=== PATIENT | female | born 1975 | race Caucasian/White ===

== ENCOUNTER 2017-02-27 10:10 | Outpatient (CLI) ==
[2016-09-13 18:56] VITALS: BMI 44.2
[2017-02-27 12:54] LABS: BASOPHILS # (AUTO) 0.1 K/uL (0-0.2); BASOPHILS % (AUTO) 1.1 % (0.0-3.0); EOSINOPHILS # (AUTO) 0.1 K/ul (0.0-0.7); EOSINOPHILS % (AUTO) 2.5 % (0.0-7.0); HEMATOCRIT 38.5 % (37.0-47.0); HEMOGLOBIN 12.2 g/dl (12.0-16.0); IMMATURE GRANULOCYTE % (AUTO) 0.4 % (0.0-5.0); LYMPHOCYTES # (AUTO) 2.1 K/uL (0.60-3.4); LYMPHOCYTES % (AUTO) 37.1 (10.0-50.0); MEAN CORPUSCULAR HEMOGLOBIN 25.5 pg (27.0-31.0); MEAN CORPUSCULAR HGB CONC 31.7 (31.8-35.4); MEAN CORPUSCULAR VOLUME 80.5 fl (81.0-99.0); MONOCYTES # (AUTO) 0.2 K/uL (0.4-2.0); MONOCYTES % (AUTO) 3.7 (0-10); NEUTROPHILS # (AUTO) 3.1 K/ul (2.0-6.9); NEUTROPHILS % (AUTO) 55.2; PLATELET COUNT 307 10^3/uL (140-440); RED BLOOD COUNT 4.78 10^6/ul (4.20-5.40); WHITE BLOOD COUNT 5.64 K/ul (4.6-10.2)
[2017-02-27 13:40] LABS: ALBUMIN 3.3 g/dL (3.4-5.0); ALBUMIN/GLOBULIN RATIO 0.85; ANION GAP 12.5; BILIRUBIN,TOTAL 0.37 mg/dL (0.00-1.20); BUN/CREATININE RATIO 16.88; CALCIUM 9.2 mg/dL (8.2-10.2); CHOL/HDL RATIO 3.7 (4.5-5.5); CREATININE 0.77 mg/dL (0.60-1.30); POTASSIUM 4.5 mmol/L (3.5-5.10); TOTAL PROTEIN 7.2 g/dL (6.4-8.2)
== END 2017-02-27 10:11 | disposition home or self-care (01) ==
LOC: LAB 10:10
PROVIDERS: ATTEND Nurse Practitioner Family
DX: D50.9 Iron deficiency anemia, unspecified (principal); F41.9 Anxiety disorder, unspecified; F32.9 Major depressive disorder, single episode, unspecified; E03.9 Hypothyroidism, unspecified; E55.9 Vitamin D deficiency, unspecified
CPT/HCPCS: 36415; 80053; 80061; 82306; 84443; 85025

== ENCOUNTER 2017-03-06 12:29 | Outpatient (CLI) ==
[2016-09-13 18:56] VITALS: BMI 44.2
[2017-03-06 14:01] LABS: FERRITIN 25.65 ng/mL (4.63-204.00)
== END 2017-03-06 12:30 | disposition home or self-care (01) ==
LOC: LAB 12:29
PROVIDERS: ATTEND Nurse Practitioner Family
DX: Z86.2 Personal history of diseases of the blood and blood-forming organs and certain disorders involving the immune mechanism (principal)
CPT/HCPCS: 36415; 82607; 82728; 83540; 83550; 84466

== ENCOUNTER → 2017-06-03 | Outpatient (POV) ==
[2016-09-13 18:56] VITALS: BMI 44.2
== END ==
LOC: OUTPT 00:01
PROVIDERS: ATTEND Otolaryngology
DX: H91.90 Unspecified hearing loss, unspecified ear (principal)

== ENCOUNTER 2017-07-15 12:42 | Outpatient (CLI) ==
[2016-09-13 18:56] VITALS: BMI 44.2
[2017-07-15 12:54] LABS: BASOPHILS % (AUTO) 0.7 % (0.0-3.0); EOSINOPHILS # (AUTO) 0.2 K/ul (0.0-0.7); EOSINOPHILS % (AUTO) 3.1 % (0.0-7.0); HEMATOCRIT 35.9 % (37.0-47.0); HEMOGLOBIN 11.8 g/dl (12.0-16.0); IMMATURE GRANULOCYTE % (AUTO) 0.5 % (0.0-5.0); LYMPHOCYTES # (AUTO) 1.8 K/uL (0.60-3.4); LYMPHOCYTES % (AUTO) 33.4 (10.0-50.0); MEAN CORPUSCULAR HEMOGLOBIN 26.5 pg (27.0-31.0); MEAN CORPUSCULAR HGB CONC 32.9 (31.8-35.4); MEAN CORPUSCULAR VOLUME 80.7 fl (81.0-99.0); MONOCYTES # (AUTO) 0.2 K/uL (0.4-2.0); MONOCYTES % (AUTO) 3.1 (0-10); NEUTROPHILS # (AUTO) 3.2 K/ul (2.0-6.9); NEUTROPHILS % (AUTO) 59.2; PLATELET COUNT 307 10^3/uL (140-440); RED BLOOD COUNT 4.45 10^6/ul (4.20-5.40); WHITE BLOOD COUNT 5.48 K/ul (4.6-10.2)
[2017-07-15 13:32] LABS: ALBUMIN 3.4 g/dL (3.4-5.0); ALBUMIN/GLOBULIN RATIO 0.85; ANION GAP 12.6; BILIRUBIN,TOTAL 0.33 mg/dL (0.00-1.20); BUN/CREATININE RATIO 19.73; CALCIUM 9.2 mg/dL (8.2-10.2); CREATININE 0.76 mg/dL (0.60-1.30); POTASSIUM 4.6 mmol/L (3.5-5.10); TOTAL PROTEIN 7.4 g/dL (6.4-8.2)
== END 2017-07-15 12:43 | disposition home or self-care (01) ==
LOC: LAB 12:42
PROVIDERS: ATTEND Nurse Practitioner Family
DX: E03.9 Hypothyroidism, unspecified (principal); E66.9 Obesity, unspecified; R59.0 Localized enlarged lymph nodes
CPT/HCPCS: 36415; 80053; 84439; 84443; 85025

== ENCOUNTER 2017-07-24 08:13 | Outpatient (CLI) ==
[2016-09-13 18:56] VITALS: BMI 44.2
--- NOTE | 2017-07-24 09:24 | CT ---
EXAM: CT neck with and without contrast HISTORY: Localized enlarged lymph nodes COMPARISON: 04/29/2013 TECHNIQUE: CT neck performed with and without intravenous contrast. Coronal and sagittal reformatte d images obtained. FINDINGS: Mastoid air cells clear. Visualized paranasal sinuses clear. Degenerative change in the spine. Lung apices clear. Thyroid unremarkable. Parotid glands unremarkable. Submandibular glands unremarkable. Evaluation of the aerodigestive tract demonstrates no exophytic mass lesion or area o f focal mass effect. Epiglottis appears normal. Tonsils and adenoids not enlarged. Prevertebral so ft tissues appear normal. A radiopaque marker was placed in the right submandibular region. There a re several lymph nodes in this region that are not enlarged by size criteria, though asymmetrically p rominent from the left, measuring up to 0.8 cm short axis. Additional scattered sub centimeter lymph nodes are seen throughout the neck. IMPRESSION: 1. Several lymph nodes in the region of clinical concern that are not enlarged by size criteria, tho ugh asymmetrically prominent from the left. Finding is nonspecific. Recommend clinical follow-up. 2. No acute abnormality identified in the neck.
== END 2017-07-24 08:14 | disposition home or self-care (01) ==
LOC: RAD 08:13
PROVIDERS: ATTEND Nurse Practitioner Family
DX: R59.0 Localized enlarged lymph nodes (principal)

== ENCOUNTER 2017-09-28 12:42 | Outpatient (CLI) ==
[2016-09-13 18:56] VITALS: BMI 44.2
== END 2017-09-28 12:43 | disposition home or self-care (01) ==
LOC: LAB 12:42
PROVIDERS: ATTEND Nurse Practitioner Family
DX: E03.9 Hypothyroidism, unspecified (principal)
CPT/HCPCS: 36415; 84439; 84443

== ENCOUNTER 2017-12-10 13:31 | Emergency (ER) ==
[2017-12-10 13:39] VITALS: TEMP 96.9; BMI 47.5
[2017-12-10] MEDS: ASPIRIN CHEWABLE PO STA (14:02)
[2017-12-10] MEDS: NITROSTAT SL STA (14:04)
[2017-12-10] MEDS: NITROSTAT SL ONE (14:05)
[2017-12-10] MEDS: ASPIRIN CHEWABLE ONE (14:05)
--- NOTE | 2017-12-10 14:33 | DI ---
EXAM: Chest one view, frontal view only. HISTORY: Chest pain. COMPARISON: 09/11/2014. FINDINGS: The heart size is normal. There is no pulmonary vascular congestion. The lungs are clear . No pleural effusion or pneumothorax is seen. No acute osseous abnormality is identified. Since t he prior study, there has been no significant interval change. IMPRESSION: No acute cardiopulmonary process.
[2017-12-10 17:55] VITALS: BP 146/90
[2017-12-10] MEDS: NORFLEX PO STA (18:01)
[2017-12-10] MEDS: TORADOL IVP STA (18:03)
--- NOTE | 2017-12-10 19:31 | ED.PDOC ---
General ED Provider: Dr. NAVID BOWENS Chief Complaint: Chest Pain Stated Complaint: Was working with her and assisted with lifting when she experienced pain in her posterior lt shoulder and ant chest wall. Described as sharp and stabbing, exacerabated by movement and deep breathing. Denies nausea or vomiting. Time Seen by Physician: 13:50 Mode of Arrival: Wheelchair Information Source: Patient, Family Primary [facility] and Triage Documentation Reviewed and Agree: Yes Reviewed sepsis parameters & appropriate labs ordered?: Yes System Inflammatory Response Syndrome: Not Applicable Sepsis Protocol: For patient's 13 years and over: Temp is 96.8 and below OR 101 and greater Pulse >90 BPM Resp >20/minute Acutely Altered Mental Status Are patient's symptoms suggestive of a new infection, such as: -Pneumonia -Skin, Soft Tissue -Endocarditis -UTI -Bone, Joint Infection -Implantable Device -Acute Abdominal Infection -Wound Infection -Meningitis -Blood Stream Catheter Infection -Unknown System Inflammatory Response Syndrome: Not Applicable Trauma/Injury Complaint Exam - Truncal Trauma Complaint/Exam Location of Pain: Reports: Left, Anterior, Posterior, Chest Symptoms Are: Still present Onset of Pain: Reports: Immediate Initial Severity: Moderate Current Severity: Moderate Mechanism: Reports: Twisted Aggravating: Reports: Movement, Deep breathing Alleviating: Reports: None Associated Signs and Symptoms: Reports: Chest pain. Denies: Short of air, Cough , Nausea, Vomiting Related History: Denies: Similar episode Related Surgical History: Reports: None Vertebral Tenderness Present: Yes Vertebral Deformity Present: Yes Crepitus Present: No Reproducible Pain at: Lt posterior chest region of lt T2-3 Paradoxical Chest Wall Movement Present: No Abdominal Guarding Present: No Abdominal Rigidity Present: No Referred Shoulder Pain (Kehr's Sign) Present: Yes Skin Findings: Present: Normal findings Review of Systems - Review Of Systems Constitutional: Reports: No symptoms Eyes: Reports: No symptoms Ears, Nose, Mouth, Throat: Reports: No symptoms Respiratory: Reports: No symptoms Cardiac: Reports: Chest pain GI: Reports: No symptoms : Reports: No symptoms Musculoskeletal: Reports: Back pain Skin: Reports: No symptoms Neurological: Reports: No symptoms Endocrine: Reports: No symptoms Hematologic/Lymphatic: Reports: No symptoms All Other Systems: Reviewed and Negative Past Medical History - Past Medical History Endocrine: Reports: Hypothyroid Cardiovascular: Reports: None Respiratory: Reports: Asthma Hematological: Reports: None Gastrointestinal: Reports: GERD Genitourinary: Reports: None Neuro/Psych: Reports: None Musculoskeletal: Reports: None Cancer: Reports: None Last Menstrual Period: hysterectpmy Other Pertinent Past Medical History: sleep Apnea - Surgical History General Surgical History: Reports: Hysterectomy, , Cholecystectomy, Tonsillectomy, Adenoidectomy - Family History Family History: Reports: None - Social History Smoking Status: Never smoker Hx Substance Use: No Alcohol Screening: None Physical Exam - Physical Exam Appearance: Obese Ill-appearing: Mild Pain Distress: Moderate Eyes: DENIA, EOMI, Conjunctiva clear ENT: Ears normal, Nose normal, Oropharynx normal Neck: Supple Respiratory: Airway patent, Breath sounds clear, Breath sounds equal Cardiovascular: RRR, Pulses normal, No rub, No murmur GI/: Soft, Nontender, No masses, Bowel sounds normal, No Organomegaly Musculoskeletal: Normal strength, ROM intact (Tenderness Lt upper thoracic region which reproduces discomfort in lt chest wall) Skin: Warm, Dry, Normal color Neurological: Sensation intact, Motor intact, Reflexes intact, Cranial nerves intact, Alert, Oriented Psychiatric: Affect appropriate, Mood appropriate, Anxious (concerned in that her mother had IN in her late 40s) Interpretation - Radiology Interpretation Radiology Interpretation By: Radiologist Radiology Results: No acute changes Critical Care Note - Critical Care Note Total Time (mins): 0 Course - Course Hematology/Chemistry: 12/10/17 13:35 12/10/17 13:35 Orders, Labs, Meds: Lab Review 12/10/17 12/10/17 12/10/17 13:35 13:35 17:38 WBC 6.89 RBC 4.67 Hgb 12.5 Hct 37.5 MCV 80.3 L MCH 26.8 L MCHC 33.3 RDW Coeff of Edgardo 15.0 H Plt Count 276 Immature Gran % (Auto) 0.7 Neut % (Auto) 57.3 Lymph % (Auto) 34.1 [place] % (Auto) 4.8 Eos % (Auto) 2.5 Baso % (Auto) 0.6 Immature Gran # (Auto) 0.1 Neut # 4.0 Lymph # 2.4 [place] # 0.3 L Eos # 0.2 Baso # 0.0 Sodium 140 Potassium 4.1 Chloride 105 Carbon Dioxide 27 Anion Gap 12.1 BUN 11 Creatinine 0.77 Estimated GFR (MDRD) 83.00 BUN/Creatinine Ratio 14.28 Glucose 89 Calcium 9.1 Total Bilirubin 0.3 AST 11 L ALT 14 Alkaline Phosphatase 91 Total Creatine Kinase 53 41 Troponin I < 0.0100 0.0140 Total Protein 7.6 Albumin 3.4 Globulin 4.2 Albumin/Globulin Ratio 0.81 Orders Category Date Time Status EKG-(ED ONLY) Stat CARDIO 12/10/17 13:57 Completed EKG-(ED ONLY) Stat CARDIO 12/10/17 17:26 Completed CBC W/ AUTO DIFF Stat LAB 12/10/17 13:35 Completed COMPREHENSIVE METABOLIC PANEL Stat LAB 12/10/17 13:35 Completed CPK [CREATINE KINASE] Stat LAB 12/10/17 17:38 Received CREATINE KINASE Stat LAB 12/10/17 13:35 Completed TROPONIN I Stat LAB 12/10/17 13:35 Completed TROPONIN I Stat LAB 12/10/17 17:38 Received Aspirin [Aspirin Chewable] MEDS 12/10/17 14:00 Discontinued 324 mg .ROUTE .STK-MED ONE Aspirin [Aspirin Chewable] MEDS 12/10/17 13:58 Discontinued 324 mg PO ONCE STA Ketorolac Tromethamine [Toradol] MEDS 12/10/17 17:53 Stat 30 mg IVP ONCE STA Nitroglycerin [Nitrostat] MEDS 12/10/17 13:59 Discontinued 0.4 mg SL .STK-MED ONE Nitroglycerin [Nitrostat] MEDS 12/10/17 13:59 Discontinued 0.4 mg SL ONCE STA Orphenadrine Citrate [Norflex] MEDS 12/10/17 17:54 Stat 100 mg PO ONCE STA CHEST, 1V AP ONLY Stat RADS 12/10/17 13:57 Completed Medications Discontinued Medications Generic Name Dose Route Start Last Admin Trade Name Freq PRN Reason Stop Dose Admin Aspirin 324 mg 12/10/17 13:58 12/10/17 14:02 Aspirin Chewable PO 12/10/17 13:59 324 mg ONCE STA Administration Ketorolac Tromethamine 30 mg 12/10/17 17:53 12/10/17 18:03 Toradol IVP 12/10/17 17:54 30 mg ONCE STA Administration Nitroglycerin 0.4 mg 12/10/17 13:59 12/10/17 14:04 Nitrostat SL 12/10/17 14:00 0.4 mg ONCE STA Administration Orphenadrine Citrate 100 mg 12/10/17 17:54 12/10/17 18:01 Norflex PO 12/10/17 17:55 100 mg ONCE STA Administration Vital Signs: Temp Pulse Resp BP Pulse Ox 12/10/17 17:54 74 19 146/90 H 97 12/10/17 13:32 96.9 F L 77 16 124/100 H 100 Departure - Departure Time of Disposition: 19:30 Disposition: HOME SELF-CARE Discharge Problem: Anterior chest wall pain, Left shoulder strain Instructions: Chest Pain (ED), Thoracic Back Strain (ED) Condition: Good Pt referred to PMD for follow-up: Yes (1 week ) IPMP verified?: No Prescriptions: Orphenadrine Citrate 100 mg PO BID PRN #10 tablet.er PRN Reason: Muscle Spasm Allergies/Adverse Reactions: Allergies fluticasone propionate [From Advair Diskus] Adverse Reaction (Verified 12/10/17 13:40) quetiapine fumarate [From Seroquel] Adverse Reaction (Verified 12/10/17 13:40) salmeterol xinafoate [From Advair Diskus] Adverse Reaction (Verified 12/10/17 13 :40) Home Medications: Ambulatory Orders Omeprazole [Prilosec] 20 mg PO QDAC 09/11/14 Biest/Test 1 tab PO DAILY 12/10/17 Orphenadrine Citrate 100 mg PO BID PRN #10 tablet.er 12/10/17 Disposition Discussed With: Patient, Family
== END 2017-12-10 19:45 | disposition home or self-care (01) ==
LOC: ED 13:31
DX: R07.89 Other chest pain (principal); S46.912A Strain of unspecified muscle, fascia and tendon at shoulder and upper arm level, left arm, initial encounter; X50.9XXA Other and unspecified overexertion or strenuous movements or postures, initial encounter
CPT/HCPCS: 36415; 80053; 82550; 84484; 85025; 93005; 93010; 96374; 96375; 99283; 99284

== ENCOUNTER 2017-12-14 14:36 | Emergency (ER) ==
[2017-12-14 14:42] VITALS: BP 135/72; TEMP 97.8; BMI 47.2
--- NOTE | 2017-12-14 15:51 | CT ---
EXAM: CTA chest for PE HISTORY: Chest pain COMPARISON: Chest x-ray 12/10/2017 and multiple priors TECHNIQUE: CTA of the chest was performed from the lung apices to the upper abdomen after 125 ml of Omnipaque IV contrast was administered using PE protocol. 3-D imaging was also provided. FINDINGS: There is no filling defect in the pulmonary arteries to the level of the subsegmental pulm onary arteries. The heart is normal without signs of ventricular strain. Aorta is unremarkable. Th e heart is normal in size without pericardial effusion. There is no mediastinal, hilar or axillary l ymphadenopathy. The thyroid is normal. There is no pneumothorax or pleural effusion. There is no consolidation, nodule or mass. There is n o abnormal ground-glass. The airways are patent. Limited views of the soft tissues in the upper abdomen demonstrate low attenuation of the liver and p rior cholecystectomy. The osseous structures are unremarkable. IMPRESSION: 1. No pulmonary embolism. 2. No acute cardiopulmonary process. 3. Hepatic steatosis and prior cholecystectomy.
[2017-12-14] MEDS ORDERED: MORPHINE 2 MG/ML SYRINGE IVP STA ×2 (15:56→20:59)
[2017-12-14] MEDS ORDERED: ZOFRAN 4 MG/2 ML IVP STA (15:57)
[2017-12-14] MEDS ORDERED: ASPIRIN EC PO STA (15:58)
--- NOTE | 2017-12-14 15:58 | ED.PDOC ---
General ED Provider: Dr. CHUN YEN Chief Complaint: Chest Pain Stated Complaint: chest pain Time Seen by Physician: 14:40 (onset last night pt was unable to sleep until 4 am) Mode of Arrival: Walk-In Information Source: Patient Exam Limitations: No limitations (was in for same issue last week) [facility] and T[facility] Documentation Reviewed and Agree: Yes Reviewed sepsis parameters & appropriate labs ordered?: Yes (no injury to chest reported . ) System Inflammatory Response Syndrome: Not Applicable Sepsis Protocol: For patient's 13 years and over: Temp is 96.8 and below OR 101 and greater Pulse >90 BPM Resp >20/minute Acutely Altered Mental Status Are patient's symptoms suggestive of a new infection, such as: -Pneumonia -Skin, Soft Tissue -Endocarditis -UTI -Bone, Joint Infection -Implantable Device -Acute Abdominal Infection -Wound Infection -Meningitis -Blood Stream Catheter Infection -Unknown System Inflammatory Response Syndrome: Not Applicable Cardiovascular Complaint Exam - Chest Pain Complaint/Exam Onset: Gradual Duration: chest pain x 12 hours off and on Timing: Constant Length of Chest Pain Episodes: 12 hrs Initial Severity: Moderate Current Severity: Mild Location: Reports: Discrete, Midsternal Pain Radiates: Reports: None Character: Reports: Aching Aggravating: Reports: None Associated Signs and Symptoms: Reports: Cough. Denies: Diaphoresis, Nausea, Vomiting, Fever, Palpitations, Hemoptysis, Back pain, Abdominal pain, Dizziness , Short of air, Calf pain, Calf swelling Related History: Reports: Similar episode Related Surgical History: Reports: None History of Healthcare-Acquired Pneumonia: Reports: No AMI/ACS Risk Factors: Reports: Obesity TAD Risk Factors: Reports: None Pulmonary Embolism Risk Factors: Reports: None Prior Care for this Complaint: No Recent Stress Test: No Recent Echo/LV Function: No JVD Present: No Subcutaneous Emphysema Present: No Diminshed Breath Sounds: No Reproducible Chest Wall Pain: No Bilateral Pulses Present: No Unequal Pulses Noted: No If Risk Factors for AMI/ACS Consider: EKG, Cardiac Enzymes Differential Diagnoses: ACS, Unstable Angina, Pulmonary Embolism Quality Indicators For Acute AK or Cardiac Chest Pain: EKG in 10min. Quality Indicator For Non-Traumatic Chest Pain/Syncope: EKG Performed Review of Systems - Review Of Systems Constitutional: Reports: No symptoms Eyes: Reports: No symptoms Ears, Nose, Mouth, Throat: Reports: No symptoms Respiratory: Reports: No symptoms Cardiac: Reports: Chest pain GI: Reports: No symptoms : Reports: No symptoms Musculoskeletal: Reports: No symptoms Skin: Reports: No symptoms Neurological: Reports: No symptoms Endocrine: Reports: No symptoms Hematologic/Lymphatic: Reports: No symptoms All Other Systems: Reviewed and Negative Past Medical History - Past Medical History Previously Healthy: Yes Endocrine: Reports: Hypothyroid Cardiovascular: Reports: None Respiratory: Reports: Asthma Hematological: Reports: None Gastrointestinal: Reports: GERD Genitourinary: Reports: None Neuro/Psych: Reports: None Musculoskeletal: Reports: None Cancer: Reports: None Last Menstrual Period: hysterectomy Other Pertinent Past Medical History: sleep Apnea - Surgical History General Surgical History: Reports: Hysterectomy, , Cholecystectomy, Tonsillectomy, Adenoidectomy - Family History Family History: Reports: None - Social History Smoking Status: Never smoker Hx Substance Use: No Alcohol Screening: None Physical Exam - Physical Exam Appearance: Well-appearing, No pain distress, Well-nourished Eyes: DENIA, EOMI, Conjunctiva clear ENT: Ears normal, Nose normal, Oropharynx normal Respiratory: Airway patent, Breath sounds clear, Breath sounds equal, Respirations nonlabored Cardiovascular: RRR, Pulses normal, No rub, No murmur GI/: Soft, Nontender, No masses, Bowel sounds normal, No Organomegaly Musculoskeletal: Normal strength, ROM intact, No edema, No calf tenderness Skin: Warm, Dry, Normal color Neurological: Sensation intact, Motor intact, Reflexes intact, Cranial nerves intact, Alert, Oriented Psychiatric: Affect appropriate, Mood appropriate Interpretation - Radiology Interpretation Radiology Interpretation By: Radiologist Radiology Results: No acute changes (NO PE) - Brokerage Clerk Rate: Normal Rhythm: Sinus Ectopy: None - EKG Interpretation Rate: Normal Rhythm: Sinus Ectopy: None [place] [facility]: [place] ST Segment: Normal Critical Care Note - Critical Care Note Total Time (mins): 0 Course - Course Hematology/Chemistry: 12/14/17 14:51 12/14/17 14:51 Orders, Labs, Meds: Lab Review 12/14/17 12/14/17 12/14/17 14:51 14:51 14:51 WBC 6.96 RBC 4.58 Hgb 12.1 Hct 36.5 L MCV 79.7 L MCH 26.4 L MCHC 33.2 RDW Coeff of Edgardo 15.1 H Plt Count 269 Immature Gran % (Auto) 0.4 Neut % (Auto) 61.0 Lymph % (Auto) 32.6 [place] % (Auto) 4.0 Eos % (Auto) 1.4 Baso % (Auto) 0.6 Immature Gran # (Auto) 0.0 Neut # 4.2 Lymph # 2.3 [place] # 0.3 L Eos # 0.1 Baso # 0.0 PT 9.6 INR 0.94 APTT 24.7 Sodium 141 Potassium 4.2 Chloride 104 Carbon Dioxide 25 Anion Gap 16.2 BUN 11 Creatinine 0.85 Estimated GFR (MDRD) 74.00 BUN/Creatinine Ratio 12.94 Glucose 93 Calcium 9.7 Total Bilirubin 0.4 AST 14 L ALT 15 Alkaline Phosphatase 89 Total Creatine Kinase 61 Troponin I < 0.0100 Total Protein 7.7 Albumin 3.7 Globulin 4.0 Albumin/Globulin Ratio 0.93 Orders Category Date Time Status EKG-(ED ONLY) Stat CARDIO 12/14/17 14:38 Completed EKG-(ED ONLY) Stat CARDIO 12/14/17 15:47 Ordered NPO REMINDER: IMAGING ONCE CARE 12/14/17 14:39 Completed ED IV/MEDIPORT/POWERPORT .ONCE EMERGENCY 12/14/17 14:39 Active CBC W/ AUTO DIFF Stat LAB 12/14/17 14:51 Completed COMPREHENSIVE METABOLIC PANEL Stat LAB 12/14/17 14:51 Completed CREATINE KINASE Stat LAB 12/14/17 14:51 Completed PARTIAL THROMBOPLASTIN TIME Stat LAB 12/14/17 14:51 Completed PT WITH INR Stat LAB 12/14/17 14:51 Completed TROPONIN I Stat LAB 12/14/17 14:51 Completed 0.9 % Sodium Chloride [Saline Flush] MEDS 12/14/17 14:39 Active 1 syr IVF PRN PRN CT CHEST PE PROTOCOL Stat RADS 12/14/17 14:38 Completed Medications Generic Name Dose Route Start Last Admin Trade Name Freq PRN Reason Stop Dose Admin Sodium Chloride 1 syr 12/14/17 14:39 Saline Flush IVF PRN PRN To flush IV Vital Signs: Temp Pulse Resp BP Pulse Ox 12/14/17 14:36 97.8 F 67 16 135/72 100 SARA Risk Score SARA Risk Score: Risk Score Odds of by 30D 0 0.1 (0.1-0.2) 1 0.3 (0.2-0.3) 2 0.4 (0.3-0.5) 3 0.7 (0.6-0.9) 4 1.2 (1.0-1.5) 5 2.2 (1.9-2.6) 6 3.0 (2.5-3.6) 7 4.8 (3.8-6.1) Departure - Departure Time of Disposition: 17:00 Disposition: TSF SHORT-TRM HOSP Discharge Problem: Chest pain Instructions: Chest Pain (ED), Angina (ED), Thoracic Pain (ED) Condition: Good Pt referred to PMD for follow-up: Yes IPMP verified?: No Additional Instructions: Please call your Family Physician as soon as possible to schedule a follow-up appointment. Allergies/Adverse Reactions: Allergies fluticasone propionate [From Advair Diskus] Adverse Reaction (Verified 12/14/17 14:59) quetiapine fumarate [From Seroquel] Adverse Reaction (Verified 12/14/17 14:59) salmeterol xinafoate [From Advair Diskus] Adverse Reaction (Verified 12/14/17 14 :59) Home Medications: Ambulatory Orders Biest/Test 1 tab PO DAILY 12/10/17 Orphenadrine Citrate 100 mg PO BID PRN #10 tablet.er 12/10/17 Disposition Discussed With: Patient, Family
[2017-12-14] MEDS ORDERED: MORPHINE 4 MG/ML VIAL ONE (16:08)
== END 2017-12-14 21:35 | disposition short-term general hospital (02) ==
LOC: ED 14:36
DX: R07.9 Chest pain, unspecified (principal); R05 Cough; E66.9 Obesity, unspecified; E03.9 Hypothyroidism, unspecified
CPT/HCPCS: 36415; 80053; 82550; 84484; 85025; 85610; 85730; 93005; 93010; 96374; 96375; 96376; 99285

== ENCOUNTER 2017-12-14 21:38 | Outpatient (CLI) ==
[2017-12-14 14:42] VITALS: BMI 47.2
== END 2017-12-14 21:39 | disposition short-term general hospital (02) ==
LOC: AMBL 21:38
PROVIDERS: ATTEND Internal Medicine Geriatric Medicine
DX: R07.9 Chest pain, unspecified (principal)

== ENCOUNTER 2018-01-20 12:01 | Observation (INO) ==
--- NOTE | 2018-01-20 14:59 | CT ---
EXAM: CTA of the head with and without contrast History: Headache and dizziness. Comparison: Head CT 04/29/2013 Technique: Multiplanar CT images through the head were obtained with and without the administration of IV contrast. MIP images and 3-D reconstructions were also acquired. Findings: The paranasal sinuses and mastoid air cells are clear in general. No acute calvarial abnor malities. Orbits are intact. Intracranially the ventricular and cisternal spaces are normal in size, shape and configuration for a patient of this age. No dominant mass or midline shift. No hydrocephalous. No acute intracranial hemorrhage or abnormal extraaxial fluid collections. The [place] demonstrates no significant stenosis. No aneurysms or dissections identified. No AVMs are seen within the brain. A few prominent submandibular lymph nodes are most likely reactive. Impression: 1. No acute intracranial process. 2. Normal [place].
--- NOTE | 2018-01-20 15:08 | ED.PDOC ---
General ED Provider: Dr. CHUN YEN Chief Complaint: Dizziness Stated Complaint: POSTIONAL VERTIGO Time Seen by Physician: 12:15 (SEEN WITH NURSING STAFF AT ALL TIMES NO TRAUMA NO NEURO DEFICITS) Information Source: Patient Exam Limitations: No limitations [facility] and Triage Documentation Reviewed and Agree: Yes Reviewed sepsis parameters & appropriate labs ordered?: Yes System Inflammatory Response Syndrome: Not Applicable Sepsis Protocol: For patient's 13 years and over: Temp is 96.8 and below OR 101 and greater Pulse >90 BPM Resp >20/minute Acutely Altered Mental Status Are patient's symptoms suggestive of a new infection, such as: -Pneumonia -Skin, Soft Tissue -Endocarditis -UTI -Bone, Joint Infection -Implantable Device -Acute Abdominal Infection -Wound Infection -Meningitis -Blood Stream Catheter Infection -Unknown System Inflammatory Response Syndrome: Not Applicable Neurological Complaint Exam - Dizziness Complaint/Exam Last Known Well: 1 DAY Onset: Gradual Duration: TODAY Symptoms Are: Still present Timing: Intermittent Episodes Lasting: Hours Initial Severity: Moderate Current Severity: Moderate Character: Reports: Lightheaded, Weak, Dizzy Aggravating: Reports: Position change Alleviating: Reports: Rest, Lying down Associated Signs and Symptoms: Reports: Nausea. Denies: Vomiting, Diaphoresis, Tinnitus, Chest pain, Short of air, Palpitations, Unsteady gait, GI blood loss, Visual changes, Decreased oral intake, Change in medication, Change in diet, OTC meds, Loss of balance Cardiac Risk Factors: Reports: None CVA Risk Factors: Reports: None JVD Present: No Carotid Bruit Present: No Rectal Heme Positive: No Glascow Coma Scale (see protocol): 15 Nystagmus Present: No Gag Reflex Present: No Meningeal Signs Positive: No Focal Weakness: Present: None Focal Sensory Loss: Present: None Gait: Normal Differential Diagnoses: Dysrhythmia, Hypovolemia, Labyrinthitis, Meniere's, Metabolic abnormalities Quality Indicators for Cardiac Chest Pain: EKG in 10min. Quality Indicators for AMI: EKG in 10min. Quality Indicator For Non-Traumatic Chest Pain/Syncope: EKG Performed Review of Systems - Review Of Systems Constitutional: Reports: No symptoms Eyes: Reports: No symptoms Ears, Nose, Mouth, Throat: Reports: No symptoms Respiratory: Reports: No symptoms Cardiac: Reports: No symptoms GI: Reports: No symptoms : Reports: No symptoms Musculoskeletal: Reports: No symptoms Skin: Reports: No symptoms Neurological: Reports: Other (VERTIGO) Endocrine: Reports: No symptoms Hematologic/Lymphatic: Reports: No symptoms All Other Systems: Reviewed and Negative Past Medical History - Past Medical History Previously Healthy: Yes Endocrine: Reports: Hypothyroid Cardiovascular: Reports: None Respiratory: Reports: Asthma Hematological: Reports: None Gastrointestinal: Reports: GERD Genitourinary: Reports: None Neuro/Psych: Reports: None Musculoskeletal: Reports: None Cancer: Reports: None Last Menstrual Period: NA Other Pertinent Past Medical History: sleep Apnea - Surgical History General Surgical History: Reports: Hysterectomy, , Cholecystectomy, Tonsillectomy, Adenoidectomy - Family History Family History: Reports: None - Social History Smoking Status: Never smoker Hx Substance Use: No Alcohol Screening: None Physical Exam - Physical Exam Appearance: Well-appearing, No pain distress, Well-nourished Eyes: DENIA, EOMI, Conjunctiva clear ENT: Ears normal, Nose normal, Oropharynx normal Respiratory: Airway patent, Breath sounds clear, Breath sounds equal, Respirations nonlabored Cardiovascular: RRR, Pulses normal, No rub, No murmur GI/: Soft, Nontender, No masses, Bowel sounds normal, No Organomegaly Musculoskeletal: Normal strength, ROM intact, No edema, No calf tenderness Skin: Warm, Dry, Normal color Neurological: Sensation intact, Motor intact, Reflexes intact, Cranial nerves intact, Alert, Oriented Psychiatric: Affect appropriate, Mood appropriate Interpretation - Radiology Interpretation Radiology Interpretation By: Radiologist Radiology Results: No acute changes Re-Evaluation - Re-Evaluation Time of Re-Evaluation: 14:00 Status: Unchanged Vital Signs Stable: Yes Pain Level: 0 Appearance: NAD Lungs: Clear Skin: Warm and Dry Neuro: Alert and Oriented X3 CV: RRR - Re-Evaluation Time of Re-Evaluation: 15:08 Status: Unchanged Vital Signs Stable: Yes Pain Level: 0 Appearance: NAD Skin: Warm and Dry Neuro: Alert and Oriented X3 CV: RRR Physician Notification - Case Discussed Physician Notified: PMD Time of Notification: 15:08 Admit To: Inpatient Critical Care Note - Critical Care Note Total Time (mins): 0 Course - Course Hematology/Chemistry: 01/20/18 12:35 01/20/18 12:35 Orders, Labs, Meds: Lab Review 01/20/18 01/20/18 01/20/18 12:14 12:35 12:35 WBC 6.56 RBC 4.29 Hgb 11.4 L Hct 34.7 L MCV 80.9 L MCH 26.6 L MCHC 32.9 RDW Coeff of Edgardo 14.8 Plt Count 223 Immature Gran % (Auto) 0.5 Neut % (Auto) 67.1 Lymph % (Auto) 25.0 Oliver % (Auto) 4.7 Eos % (Auto) 2.4 Baso % (Auto) 0.3 Immature Gran # (Auto) 0.0 Neut # (Auto) 4.4 Lymph # (Auto) 1.6 Oliver # (Auto) 0.3 L Eos # (Auto) 0.2 Baso # (Auto) 0.0 Sodium 140 Potassium 4.1 Chloride 107 Carbon Dioxide 24 Anion Gap 13.1 BUN 10 Creatinine 0.73 Estimated GFR (MDRD) 88.00 BUN/Creatinine Ratio 13.69 Glucose 94 Calcium 8.8 Total Bilirubin 0.3 AST 12 L ALT 12 Alkaline Phosphatase 83 Total Protein 6.7 Albumin 3.2 L Globulin 3.5 Albumin/Globulin Ratio 0.91 Procalcitonin < 0.05 Influ A Molecular Assay Influ B Molecular Assay 01/20/18 12:40 WBC RBC Hgb Hct MCV MCH MCHC RDW Coeff of Edgardo Plt Count Immature Gran % (Auto) Neut % (Auto) Lymph % (Auto) Oliver % (Auto) Eos % (Auto) Baso % (Auto) Immature Gran # (Auto) Neut # (Auto) Lymph # (Auto) Oliver # (Auto) Eos # (Auto) Baso # (Auto) Sodium Potassium Chloride Carbon Dioxide Anion Gap BUN Creatinine Estimated GFR (MDRD) BUN/Creatinine Ratio Glucose Calcium Total Bilirubin AST ALT Alkaline Phosphatase Total Protein Albumin Globulin Albumin/Globulin Ratio Procalcitonin Influ A Molecular Assay Negative by naat Influ B Molecular Assay Negative by naat Orders Category Date Time Status EKG-(ED ONLY) Stat CARDIO 01/20/18 12:23 Completed NPO REMINDER: IMAGING ONCE CARE 01/20/18 12:24 Completed ED IV/MEDIPORT/POWERPORT .ONCE EMERGENCY 01/20/18 12:27 Active BLOOD CULTURE (ED ONLY) Stat LAB 01/20/18 12:14 Received CBC W/ AUTO DIFF Stat LAB 01/20/18 12:35 Completed COMPREHENSIVE METABOLIC PANEL Stat LAB 01/20/18 12:35 Completed FLU A/B MOLECULAR Stat LAB 01/20/18 12:40 Completed MOLECULAR GROUP A STREP Stat LAB 01/20/18 12:40 Completed PROCALCITONIN Stat LAB 01/20/18 12:14 Completed 0.9 % Sodium Chloride [Saline Flush] MEDS 01/20/18 12:26 Active 1 syr IVF PRN PRN CTA ANGIO HEAD Stat RADS 01/20/18 12:23 Completed Medications Generic Name Dose Route Start Last Admin Trade Name Freq PRN Reason Stop Dose Admin Sodium Chloride 1 syr 01/20/18 12:26 Saline Flush IVF PRN PRN To flush IV Vital Signs: Temp Pulse Resp BP Pulse Ox 01/20/18 12:13 98.0 F 70 16 141/80 H 99 Departure - Departure Time of Disposition: 15:09 Disposition: ADMITTED INPATIENT Discharge Problem: Dizziness Instructions: Vertigo (ED), Dizziness (ED), Lightheadedness (ED), Vertigo (DC) Condition: Good Pt referred to PMD for follow-up: Yes IPMP verified?: No Additional Instructions: Please call your Family Physician as soon as possible to schedule a follow-up appointment. Allergies/Adverse Reactions: Allergies fluticasone propionate [From Advair Diskus] Adverse Reaction (Verified 01/20/18 12:10) quetiapine fumarate [From Seroquel] Adverse Reaction (Verified 01/20/18 12:10) salmeterol xinafoate [From Advair Diskus] Adverse Reaction (Verified 01/20/18 12 :10) Home Medications: Ambulatory Orders Biest/Test 1 tab PO DAILY 12/10/17 Disposition Discussed With: Patient, Family
[2018-01-20] MEDS ORDERED: PROAIR HFA IH PRN (15:54)
[2018-01-20 16:08] VITALS: BMI 47.0
[2018-01-20] MEDS ORDERED: TORADOL IVP STA (16:26)
[2018-01-20] MEDS ORDERED: DECADRON 4 MG/ML SDV IVP STA (16:26)
[2018-01-20] MEDS: VALIUM PO SCH ×2 (16:31→20:58)
[2018-01-20] MEDS: ANTIVERT PO PRN (16:32)
[2018-01-20] MEDS ORDERED: BIEST PO ONE (20:00)
[2018-01-20] MEDS ORDERED: [UNRECOGNIZED DRUG - OTHER] PO ONE (20:00)
[2018-01-20] MEDS: ZOLOFT PO SCH (20:59)
[2018-01-20] MEDS ORDERED: ZOLOFT PO SCH (21:00)
[2018-01-20] MEDS ORDERED: NON-FORMULARY MEDICATION (Sertraline Hcl [Sertraline Hcl] 100 MG) PO SCH (21:00)
[2018-01-21] MEDS: ANTIVERT PO PRN ×3 (02:45→16:07)
[2018-01-21] MEDS: VALIUM PO SCH ×4 (02:45→20:33)
[2018-01-21] MEDS: SYNTHROID PO SCH ×2 (05:50→05:51)
[2018-01-21] MEDS ORDERED: MOTRIN PO STA (06:01)
[2018-01-21] MEDS ORDERED: DECADRON 4 MG/ML SDV IM STA (08:21)
[2018-01-21] MEDS ORDERED: ZOFRAN 4 MG/2 ML IVP PRN (08:47)
[2018-01-21] MEDS ORDERED: ZOFRAN 4 MG/2 ML ONE (08:53)
[2018-01-21] MEDS: [UNRECOGNIZED DRUG - OTHER] PO SCH (08:58)
[2018-01-21] MEDS: BIEST PO SCH (08:58)
[2018-01-21] MEDS ORDERED: LEVOTHYROXINE SODIUM 175 MCG PO SCH (09:00)
--- NOTE | 2018-01-21 13:33 | MRI ---
EXAM: MRI brain without IV contrast. DATE: 21 January 2018. HISTORY: Headaches, dizziness. TECHNIQUE: Sagittal T1W, axial T2W, axial FLAIR, axial T1W, axial DWI, and coronal T2W GRE sequences of the brain were obtained using 1.2 Paulina magnet. No IV contrast. COMPARISON: CTA head 20 January 2018. FINDINGS: The ventricles, cisterns, and subarachnoid spaces are normal in size and configuration. N o midline shift, mass effect or abnormal extra-axial fluid collection is apparent. No acute infarct, hemorrhage or neoplasm is identified. A few 1-3 mm T2W/FLAIR bright foci are scattered in the subco rtical white matter bilaterally. The batsita - white matter differentiation is normal. The 7th/8th pleasure craft sailor nial nerve complexes, cerebellopontine angles, brainstem, and visible cervical spinal cord are normal . There is no cerebellar tonsillar ectopia. The pituitary gland is normal in size and signal. Diamond us callosum is normal in size and configuration. Flow voids are present in the major intracranial ar teries and in the dural venous sinuses. No aneurysm, AVM or dural venous sinus thrombosis is apparen t. No orbit abnormality is identified. The mastoid air cells are unremarkable. There is no acute s inusitis. Minor adenoid tissue prominence appears benign. No neck mass or lymphadenopathy is detect ed. No focal calvarial neoplasm or acute fracture is evident. T1W/T2W bone marrow signal is somewhat darker than typically seen in the calvarium, and similar to the intervertebral discs in the upper C- spine. IMPRESSIONS: 1. No acute infarct, hemorrhage, neoplasm or hydrocephalus. 2. Minimal cerebral leukomalacia - likely small vessel disease. 3. Minor adenoid tissue prominence appears benign. 4. Borderline T1W bone marrow signal. DDX: Normal variation vs red marrow reconversion. Correlate for anemia.
[2018-01-21] MEDS ORDERED: TORADOL IVP STA (13:43)
--- NOTE | 2018-01-21 14:54 | HP ---
DATE OF SERVICE: 01/20/18 CHIEF COMPLAINT: Dizziness HISTORY OF PRESENT ILLNESS: This is a 42 year old female who woke up today with dizziness, feels off balance and feels pressure in the back of the head. She had some difficulty with the thought process and could not remember some personal information. She has had short term memory issues for months. She was seen by Dr. Cortés in the emergency room. Temperature was normal. The patient has history of sleep apnea and GERD. CTA of the brain was done in the emergency room to rule out aneurysm which was negative. Hgb was 11.4 and rest of the labs were negative and serology was negative. At that time the patient was admitted to the observation for intractable dizziness for IV fluids and treatment of the dizziness. REVIEW OF SYSTEMS: CONSTITUTIONAL: No fever, no chills. Weakness and tiredness. Dizziness. HEENT: Normal. ENDOCRINE: No weight gain; no weight loss. CVS: No chest pain. No PND, no orthopnea. No shortness of breath. No PND, no orthopnea. RESPIRATORY: No cough, no congestion. No hemoptysis. GI: No nausea, no vomiting. No abdominal pain. No melena. : No hematuria. No polyuria. MUSCULOSKELETAL: No joint swelling. PSYCHIATRIC: Not anxious. No depression. No suicidal thoughts. No homicidal thoughts. SKIN: Intact, no open lesions. PAST MEDICAL HISTORY: Cardiac history of heart murmur History of Asthmatic bronchitis GERD Osteoarthritis Hypothyroidism Depression PAST SURGICAL HISTORY: Cholecystectomy 2011 Lumpectomy left neck 2012 Lumpectomy front of the neck 2003 Tonsillectomy Adenoidectomy PERSONAL HISTORY: The patient does smoke. No alcohol and no drugs. Family history is significant for the throat and lung cancers. MEDICATIONS: Albuterol Sertraline Levothyroxine ALLERGIES: Fluticasone Seroquel Salmeterol PHYSICAL EXAMINATION: V/S: blood pressure 141/80, respiratory rate 16, heart rate 70, temperature 98.0 and saturation is 99%. GENERAL: Obese patient laying in the bed not in any distress. HEENT: Atraumatic, normocephalic. No scleral icterus. Mucosa dry. NECK: Supple. No JVD, no bruit. No lymphadenopathy. No thyromegaly. HEART: S1, S2 normal. No murmur. No cyanosis or clubbing. No ascites. LUNGS: Clear to auscultation. No rales or rhonchi. ABDOMEN: Soft, nontender. Bowel sounds are active. No CVA tenderness. No rigidity or guarding. EXTREMITIES: No pedal edema. No cyanosis or clubbing MUSCULOSKELETAL: Normal joints, no swelling. NEUROLOGIC: The patient is SKIN: Intact; no open lesions. LYMPHATIC: No lymph nodes palpable. LABS: Sodium 140, potassium 4.1, chloride 107, bicarb 24, BUN 10, creatinine 0.73, WBC 6.56, hgb 11.4, hct 34.7, plt count 223. ASSESSMENT: 1. Intractable dizziness probably positional vertigo, CTA neck is negative 2. History of hypothyroidism 3. Bronchial asthma 4. GERD 5. Sleep apnea. PLAN: 1. Admit the patient to observation 2. Decadron shot 3. MRI of the brain in the morning 4. D-dimer 5. Toradol for the headache TIME SPENT: MORE THAN 65 minutes MTDD
[2018-01-21] MEDS ORDERED: DEMEROL 25 MG/ML VIAL IVP STA (15:52)
[2018-01-21] MEDS ORDERED: TORADOL IVP PRN (17:56)
[2018-01-21] MEDS: ZOLOFT PO SCH (20:33)
[2018-01-22] MEDS: VALIUM PO SCH ×2 (03:30→09:05)
[2018-01-22] MEDS: SYNTHROID PO SCH ×2 (05:32)
[2018-01-22] MEDS: BIEST PO SCH (09:04)
[2018-01-22] MEDS: [UNRECOGNIZED DRUG - OTHER] PO SCH (09:04)
--- NOTE | 2018-01-22 09:15 | PN ---
DATE OF SERVICE: 01/21/18 SUBJECTIVE: Admitted with severe dizziness. The patient is having headache, left-sided that radiates to the front. Light is bothering her. No visual problem. No blurry vision. She did have these headaches in the past but lately getting worse. No nausea, vomiting or diarrhea. REVIEW OF SYSTEMS: CONSTITUTIONAL: No fever, no chills. HEENT: Headache, No blurry vision. No visual problems. ENDOCRINE: No weight gain, no weight loss. CVS: No angina symptoms. No CHF symptoms. No palpitations. No atypical chest pain for CAD. No shortness of breath. No PND, no orthopnea. RESPIRATORY: No cough, no hemoptysis. GI: No nausea, no vomiting. No abdominal pain. : No hematuria. No polyuria. MUSCULOSKELETAL: No joint swelling. PSYCHIATRIC: Not anxious. No depression. No suicidal thoughts. No homicidal thoughts. SKIN: Intact. No rash. PHYSICAL EXAMINATION: V/S: BP 111/67, respiratory rate 20, heart rate 58, temperature 97.8, saturation 96. HEENT: Normocephalic, atraumatic. Mucosa dry. Pallor positive. No icterus. NECK: Supple. No JVD, no carotid bruit. No lymphadenopathy. LUNGS: Clear to auscultation. No rales or rhonchi. HEART: S1, S2 normal. No S3. No murmur, gallop or regurgitation. ABDOMEN: Soft, nontender. Bowel sounds active. No rigidity. No rebound or guarding. No CVA tenderness. EXTREMITIES: No pedal edema. No clubbing or cyanosis MUSCULOSKELETAL: No joint swelling. NEUROLOGIC: Awake, alert, oriented times three. No focal deficit. LYMPHATIC: No lymph nodes palpable. SKIN: Intact. LABS: White count 6.56, hemoglobin 11.4, hematocrit 34.7. Platelet count 223. Sodium 140, potassium 4.1 chloride 107, bicarb 24, BUN 10, creatinine 0.73. ASSESSMENT: 1. VERTIGO MOST LIKELY BENIGN POSITIONAL VERTIGO 2. SEVERE HEADACHE 3. HYPOTHYROIDISM 4. ASTHMATIC BRONCHITIS 5. CHOLECYSTECTOMY 6. HYSTERECTOMY PLAN: 1. MRI of the brain 2. Observation 3. Decadron and Toradol TIME SPENT: More than 35 minutes MTDD
[2018-01-22 10:25] VITALS: BP 108/74; TEMP 98.2
--- NOTE | 2018-02-04 08:31 | DS ---
DATE OF SERVICE: 01/22/18 FINAL DIAGNOSIS: 1. Dizziness 2. Vertigo, benign positional vertigo most likely Meniere related 3. Hypothyroidism 4. Asthmatic bronchitis 5. Cholecystectomy 6. Hysterectomy 7. Staring spells where that patient gets into staring episodes does not know what she is doing and gets some amnesia problems which has been going on chronically. MRI of the head is negative at this time. We will do the further evaluation as an outpatient. No episodes during the hospital stay as per the nurses documentation and by my documentation. 8. Anemia DISCHARGE INSTRUCTIONS: Followup in the [facility] without 4-5 days. Resume all home medications. MEDICATIONS AT DISCHARGE: Albuterol Sertraline Levothyroxine NEW PRESCRIPTIONS: Augmentin 500mg twice a day Prednisone 10mg twice a day Meclizine 25mg three times a day Fiorinal for the headache DIET INSTRUCTIONS: Regular ACTIVITY: As much as tolerated DISEASE SPECIFIC EDUCATION: Headache Dizziness Fall risk been discussed and verbalized understanding. HOSPITAL COURSE: Carmen Joyce 42 year old female came to the emergency room with severe dizziness and not able to be steady. Seen in the Dr. Cortés in the emergency room. CT angiogram with IV contrast was done in the emergency room to rule out the aneurysm which was negative. At that time she was admitted to the hospital and started on the Ativan and Toradol for the pain, Demerol for the pain. Ativan was given, Diazepam/Valium was Q 6 hours given. The patient still had a problem and started having the severe headache 10 out of 10 left sided behind the eye. MRI of the head was done which did not show any findings. As Demerol was helping the pain and dose of the Fiorinal was offered but was not given in the hospital. Given the MRI findings and the typical most likely maybe migraine headaches. Then patient was telling us that she has been having this staring spells or spells where she does not remember what is going on and she is worried about those spells. Explained to her this can be any kind of neurological disorders and during the whole hospital stays she never had any kind of spells like that. The patient was reassured and advised that we will be getting a neurological consultation as an outpatient and patient being discharged home. Again the patient did not have any kind of episode during the hospital stay. TIME SPENT: MORE THAN 35 MINUTES MTDD
== END 2018-01-22 10:15 | disposition home or self-care (01) ==
LOC: ED 12:01 → UNDOADMOB 15:15 → MEDSURG A 15:15 → INTOOBSV 15:15 → MEDSURG A 15:15
PROVIDERS: ADMIT Emergency Medicine; ATTEND Emergency Medicine
DX: H81.10 Benign paroxysmal vertigo, unspecified ear (principal); R41.3 Other amnesia; R40.4 Transient alteration of awareness; R51 Headache; R01.1 Cardiac murmur, unspecified; D64.9 Anemia, unspecified; J45.909 Unspecified asthma, uncomplicated; E03.9 Hypothyroidism, unspecified; Z79.899 Other long term (current) drug therapy
CPT/HCPCS: 36415; 80053; 80306; 81001; 84145; 84436; 84443; 84479; 85025; 85379; 87040; 87502; 87651; 93005; 93010; 96374; 96375; 96376; 99284

== ENCOUNTER 2018-02-19 14:17 | Outpatient (CLI) | END 2018-02-19 14:18 | disposition home or self-care (01) | LOC: RHC-LAB 14:17 | PROVIDERS: ATTEND Emergency Medicine | DX: J06.9 Acute upper respiratory infection, unspecified (principal) | CPT/HCPCS: 87651 ==

== ENCOUNTER 2018-06-02 13:56 | Outpatient (CLI) | END 2018-06-02 13:57 | disposition home or self-care (01) | LOC: RHC-LAB 13:56 | PROVIDERS: ATTEND Emergency Medicine | DX: E03.9 Hypothyroidism, unspecified (principal); D50.9 Iron deficiency anemia, unspecified; E55.9 Vitamin D deficiency, unspecified; E66.9 Obesity, unspecified | CPT/HCPCS: 36415; 80053; 80061; 84443; 85025 ==

== ENCOUNTER 2018-07-25 14:20 | Outpatient (CLI) | END 2018-07-25 14:48 | disposition short-term general hospital (02) | LOC: AMBL 14:20 | PROVIDERS: ATTEND Emergency Medicine | DX: R56.9 Unspecified convulsions (principal); R41.0 Disorientation, unspecified ==

== ENCOUNTER 2018-11-12 11:17 | Outpatient (CLI) | END 2018-11-12 11:18 | disposition home or self-care (01) | LOC: RHC-LAB 11:17 | PROVIDERS: ATTEND Nurse Practitioner Family | DX: D50.9 Iron deficiency anemia, unspecified (principal); E03.9 Hypothyroidism, unspecified; E55.9 Vitamin D deficiency, unspecified | CPT/HCPCS: 36415; 82306; 82607; 82728; 82746; 83540; 83550; 84443; 84466; 85025; 85045 ==

== ENCOUNTER 2018-11-17 08:45 | Outpatient (CLI) ==
--- NOTE | 2018-11-17 11:29 | US ---
EXAM: Thyroid ultrasound HISTORY: Nontoxic single thyroid nodule COMPARISON: None TECHNIQUE: Thyroid ultrasound was performed FINDINGS: Right thyroid measures 1.7 x 1.5 x 5.8 cm. Left thyroid measures 1.7 x 1.6 x 4.9 cm. Thy roid isthmus measures 0.6 cm. Thyroid mildly heterogeneous in echogenicity. Thyroid normal in vascu larity. There is a hypoechoic nodule right mid thyroid measuring 0.8 x 0.8 x 1.0 cm. There is a hyp oechoic nodule left mid thyroid measuring 1.0 x 0.7 x 0.9 cm. IMPRESSION: 1. Bilateral thyroid nodules. Sonographic follow-up recommended in 6 months. 2. Heterogeneous thyroid, nonspecific.
== END 2018-11-17 08:46 | disposition home or self-care (01) ==
LOC: RAD 08:45
PROVIDERS: ATTEND Nurse Practitioner Family
DX: E04.1 Nontoxic single thyroid nodule (principal); E03.9 Hypothyroidism, unspecified

== ENCOUNTER 2018-12-06 12:43 | Emergency (ER) ==
[2018-12-06 12:53] VITALS: BP 143/87; TEMP 97; BMI 44.6
[2018-12-06] MEDS ORDERED: TORADOL IM STA (13:08)
--- NOTE | 2018-12-06 14:01 | CT ---
EXAM: CT of the chest without contrast History: Chest pain and trauma. Technique: Multiplanar CT images through the chest were obtained without the administration of IV co ntrast Findings: Heart size is normal. No pericardial effusion. Great vessels are unremarkable. No patho logically enlarged thoracic lymph nodes. No consolidation. No pleural fluid and no pneumothorax. N o lung masses or lung nodules. Within the visualized upper abdomen, status post cholecystectomy. The liver is fatty. No acute osse ous abnormalities. Impression: No acute intrathoracic process
--- NOTE | 2018-12-06 14:03 | CT ---
EXAM: CT of the thoracic spine without contrast History: Back trauma. Technique: Multiplanar CT images through the thoracic spine were obtained without the administration of IV contrast Findings: Lungs are clear. No acute fracture or subluxation of the thoracic spine. Mild multilevel disc space narrowing with a few small osteophytes. Bony spinal canal is not compromised. Impression: No acute osseous abnormality of the thoracic spine.
--- NOTE | 2018-12-06 14:05 | CT ---
EXAM: CT of the cervical spine without contrast History: Neck trauma. Technique: Multiplanar CT images through the cervical spine were obtained without the administration of IV contrast Findings: No acute fracture or subluxation of the cervical spine. No prevertebral soft tissue swelli ng. Predental space is not widened. Moderate to severe disc space narrowing at C5-6 with endplate s clerosis and osteophyte formation. Mild to moderate disc space narrowing seen elsewhere. Mild to mo derate central canal stenosis at C5-6 secondary to posterior disc osteophyte complex. Moderate bilat eral bony neural foraminal narrowing at C5-6 secondary to uncovertebral and facet hypertrophy. Impression: 1. No acute osseous abnormality of the cervical spine. 2. Degenerative changes at C5-6
--- NOTE | 2018-12-06 14:07 | CT ---
EXAM: CT LUMBAR SPINE HISTORY: Fall TECHNIQUE: CT lumbar spine without contrast. 3-mm axial sections. Coronal and sagittal reformation s. COMPARISON: None FINDINGS: No fracture or subluxation. Normal vertebral body height. No scoliosis. Sacroiliac joints are with in normal limits. There is mild degenerative disc and facet disease of the lower spine. No paraspin al hematoma. IMPRESSION: 1. No fracture or subluxation.
--- NOTE | 2018-12-06 14:07 | DI ---
EXAM: Three views of the right shoulder. History: Right shoulder trauma. Findings: No acute fracture or dislocation. No abnormal calcifications or radiopaque foreign bodies . Joint spaces are preserved. Impression: Unremarkable exam
--- NOTE | 2018-12-06 14:09 | DI ---
EXAM: LEFT SHOULDER HISTORY: Fall FINDINGS: Left shoulder three-view. Bone and joint structures are within normal limits. There is n o joint dislocation or fracture identified. Bone density and soft tissues are unremarkable. IMPRESSION: Within normal limits.
--- NOTE | 2018-12-06 14:15 | ED.PDOC ---
General ED Provider: Dr. CHUN YEN Chief Complaint: Fall Stated Complaint: fall in the shower c/o back pain chest wall pain shoulder pain Time Seen by Physician: 13:00 (belkisen with aracely at all times ) Mode of Arrival: Walk-In Information Source: Patient Exam Limitations: No limitations Primary Care Provider: TORITO MAURER Nursing and Triage Documentation Reviewed and Agree: Yes Does patient meet sepsis criteria?: No System Inflammatory Response Syndrome: Not Applicable Sepsis Protocol: For patient's 13 years and over: Temp is 96.8 and below OR 101 and greater Pulse >90 BPM Resp >20/minute Acutely Altered Mental Status Are patient's symptoms suggestive of a new infection, such as: -Pneumonia -Skin, Soft Tissue -Endocarditis -UTI -Bone, Joint Infection -Implantable Device -Acute Abdominal Infection -Wound Infection -Meningitis -Blood Stream Catheter Infection -Unknown Trauma/Injury Complaint Exam - Trauma Complaint/Exam Location of Pain or Injury: Reports: Neck, Chest, Back, Other (shoulders ) Onset/Duration: fall today Symptoms Are: Still present Timing of Treatment: Immediate Initial Severity: Moderate Current Severity: Mild Character: Reports: Aching Aggravating: Reports: Movement Alleviating: Reports: Rest Associated Signs and Symptoms: Denies: LOC, Confusion, Memory loss, Lethargy, Vomiting, Bleeding, Bruising, Swelling, Extremity disuse, Painful respiration, Hoarseness, Dysphagia, Hemoptysis, Significant blood loss Related History: Reports: Similar episode : No Nexus Low Risk Criteria: No evidence of intoxicat., No Altered LOC, No focal neuro deficit, No distracting injuries Glascow Coma Scale (see protocol): 15 Trauma Findings: Absent: [place] eyes Skin Findings: Present: Normal findings Differential Diagnoses: Fracture, Sprain, Strain Review of Systems - Review Of Systems Constitutional: Reports: No symptoms Eyes: Reports: No symptoms Ears, Nose, Mouth, Throat: Reports: No symptoms Respiratory: Reports: No symptoms Cardiac: Reports: No symptoms GI: Reports: No symptoms : Reports: No symptoms Musculoskeletal: Reports: Back pain, Neck pain Skin: Reports: No symptoms Neurological: Reports: No symptoms Endocrine: Reports: No symptoms Hematologic/Lymphatic: Reports: No symptoms All Other Systems: Reviewed and Negative Past Medical History - Past Medical History Previously Healthy: Yes Endocrine: Reports: Hypothyroid Cardiovascular: Reports: None Respiratory: Reports: Asthma Hematological: Reports: None Gastrointestinal: Reports: GERD Genitourinary: Reports: None Neuro/Psych: Reports: None Musculoskeletal: Reports: None Cancer: Reports: None Last Menstrual Period: none Other Pertinent Past Medical History: sleep Apnea - Surgical History General Surgical History: Reports: Hysterectomy, , Cholecystectomy, Tonsillectomy, Adenoidectomy - Family History Family History: Reports: None - Social History Smoking Status: Never smoker Hx Substance Use: No Alcohol Screening: None Physical Exam - Physical Exam Appearance: Well-appearing, No pain distress, Well-nourished Eyes: DENIA, EOMI, Conjunctiva clear ENT: Ears normal, Nose normal, Oropharynx normal Respiratory: Airway patent, Breath sounds clear, Breath sounds equal, Respirations nonlabored Cardiovascular: RRR, Pulses normal, No rub, No murmur GI/: Soft, Nontender, No masses, Bowel sounds normal, No Organomegaly Musculoskeletal: Normal strength, ROM intact, No edema, No calf tenderness Skin: Warm, Dry, Normal color Neurological: Sensation intact, Motor intact, Reflexes intact, Cranial nerves intact, Alert, Oriented Psychiatric: Affect appropriate, Mood appropriate Interpretation - Radiology Interpretation Radiology Interpretation By: Radiologist Radiology Results: No acute changes Exam Interpreted: CT Scan Critical Care Note - Critical Care Note Total Time (mins): 0 Course - Course Orders, Labs, Meds: Orders Category Date Time Status Ketorolac Tromethamine [Toradol] MEDS 12/06/18 13:08 Discontinued 60 mg IM ONCE STA CT CERVICAL SPINE W/O CONTRAST Stat RADS 12/06/18 13:[address] CHEST W/O CONTRAST Stat RADS 12/06/18 13:[address] LUMBAR SPINE W/O CONTRAST Stat RADS 12/06/18 13:[address] THORACIC SPINE W/O CONTRAST Stat RADS 12/06/18 13:06 Ordered SHOULDER, LEFT MIN 2V Stat RADS 12/06/18 13:08 Ordered SHOULDER, RIGHT MIN 2V Stat RADS 12/06/18 13:11 Ordered Medications Discontinued Medications Generic Name Dose Route Start Last Admin Trade Name Freq PRN Reason Stop Dose Admin Ketorolac Tromethamine 60 mg 12/06/18 13:08 12/06/18 13:39 Toradol IM 12/06/18 13:09 60 mg ONCE STA Administration Vital Signs: Temp Pulse Resp BP Pulse Ox 12/06/18 12:43 97.0 F L 93 H 20 143/87 H 98 Departure - Departure Time of Disposition: 14:15 Disposition: HOME SELF-CARE Discharge Problem: Neck pain Back pain Qualifiers: Back pain location: low back pain Chronicity: acute Instructions: Acute Low Back Pain (ED), Shoulder Sprain (ED) Condition: Good Pt referred to PMD for follow-up: Yes IPMP verified?: No Additional Instructions: Please call your Family Physician as soon as possible to schedule a follow-up appointment. Prescriptions: Cyclobenzaprine HCl [Flexeril] 10 mg PO BID #7 tablet Allergies/Adverse Reactions: Allergies pineapple Allergy (Unknown, Verified 12/06/18 12:49) fluticasone propionate [From Advair Diskus] Adverse Reaction (Verified 12/06/18 12:49) quetiapine fumarate [From Seroquel] Adverse Reaction (Verified 12/06/18 12:49) salmeterol xinafoate [From Advair Diskus] Adverse Reaction (Verified 12/06/18 12 :49) Home Medications: Ambulatory Orders Sumatriptan Succinate [Imitrex] 100 mg PO PRN 11/15/18 Topiramate [Topamax] 25 mg PO 2 tabs BID 11/15/18 Cyclobenzaprine HCl [Flexeril] 10 mg PO BID #7 tablet 12/06/18 Levetiracetam [Keppra] 500 mg PO BID 12/06/18
== END 2018-12-06 14:21 | disposition home or self-care (01) ==
LOC: ED 12:43
DX: M54.2 Cervicalgia (principal); M54.5 Low back pain; R07.89 Other chest pain; M25.512 Pain in left shoulder; M25.511 Pain in right shoulder; W18.2XXA Fall in (into) shower or empty bathtub, initial encounter
CPT/HCPCS: 96372; 99283

== ENCOUNTER 2018-12-13 08:34 | Outpatient (CLI) | END 2018-12-13 08:35 | disposition home or self-care (01) | LOC: RHC-LAB 08:34 | PROVIDERS: ATTEND Nurse Practitioner Family | DX: Z12.31 Encounter for screening mammogram for malignant neoplasm of breast (principal); F32.9 Major depressive disorder, single episode, unspecified; F41.9 Anxiety disorder, unspecified; E03.9 Hypothyroidism, unspecified; E66.9 Obesity, unspecified; D50.9 Iron deficiency anemia, unspecified; E55.9 Vitamin D deficiency, unspecified | CPT/HCPCS: 36415; 80053; 80061; 82306; 82607; 84443 ==

== ENCOUNTER 2019-02-22 08:35 | Outpatient (CLI) | END 2019-02-22 08:36 | disposition home or self-care (01) | LOC: RHC-LAB 08:35 | PROVIDERS: ATTEND Nurse Practitioner Family | DX: E03.9 Hypothyroidism, unspecified (principal); D50.9 Iron deficiency anemia, unspecified; F41.9 Anxiety disorder, unspecified; E66.9 Obesity, unspecified | CPT/HCPCS: 36415; 80053; 80061; 84443; 85025 ==

== ENCOUNTER 2019-02-24 09:36 | Outpatient (CLI) ==
--- NOTE | 2019-02-25 10:18 | MAMMO ---
EXAM: Bilateral digital diagnostic mammogram (2-D and 3-D) History: Baseline screening Findings: MLO and CC views of bilateral breasts demonstrate predominately fatty replaced breast paren chyma. CAD was reviewed by the radiologist. Tomosynthesis was performed. There are no dominant mas ses, no suspicious microcalcifications and no architectural distortions Impression: Negative mammogram. Recommend followup routine screening mammography in 1 year. BIRADS 1, negative
== END 2019-02-24 09:37 | disposition home or self-care (01) ==
LOC: RAD 09:36
PROVIDERS: ATTEND Nurse Practitioner Family
DX: Z12.31 Encounter for screening mammogram for malignant neoplasm of breast (principal)

== ENCOUNTER 2019-04-06 08:49 | Outpatient (CLI) | END 2019-04-06 08:50 | disposition home or self-care (01) | LOC: RHC-LAB 08:49 | PROVIDERS: ATTEND Nurse Practitioner Family | DX: E03.9 Hypothyroidism, unspecified (principal); R94.6 Abnormal results of thyroid function studies | CPT/HCPCS: 36415; 84443 ==